=== PATIENT | male | born 1985 | race Caucasian/White ===

== ENCOUNTER 2021-04-26 10:33 | Emergency (ER) | payer SELFPAY ==
[2021-04-26] MEDS ORDERED: Acetaminophen 500 MG Tab PO STA (11:36)
[2021-04-26] MEDS ORDERED: Ibuprofen 800 MG Tab PO STA (11:36)
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
[2021-04-26 12:45] VITALS: BP 133/75; PULSE 78
== END 2021-04-26 12:20 | disposition home or self-care (01) ==
LOC: FB.ED 10:33
DX: S02.2XXA Fracture of nasal bones, initial encounter for closed fracture (principal); Z72.0 Tobacco use; Y04.2XXA Assault by strike against or bumped into by another person, initial encounter
CPT/HCPCS: 70450; 70486; 99284; A9270